=== PATIENT | female | born 1970 | race Caucasian/White ===

== ENCOUNTER 2023-12-16 11:34 | Outpatient (CLI) | payer MEDICAID, SELFPAY ==
[2023-12-16 19:11] LABS: Creatinine,Urine Random 17 mg/dL (Not Estab.)
[2023-12-16 19:15] LABS: Microalbumin < 6.000 mg/L (0-16.7)
[2023-12-16 19:28] LABS: Basophils # 0.1 K/mm3 (0-0.2); Eosinophils # 0.2 K/mm3 (0.0-0.4); Hemoglobin 16.3 g/dL (12.2-16.2); Lymphocytes # 2.2 K/mm3 (0.7-4.5); Lymphocytes % 27.5 % (10-50); Mean Corpuscular HGB Conc 33.9 g/dL (31.8-35.4); Mean Corpuscular Hemoglobin 29.3 pg (27.0-31.2); Mean Corpuscular Volume 86.4 fl (81-99); Monocytes # 0.4 K/mm3 (0.1-1.0); Monocytes % 4.6 % (1.7-9.3); Neutrophils # 5.2 K/mm3 (1.8-7.8); Platelet Count 303 K/mm3 (142-424); Red Blood Count 5.56 M/mm3 (4.20-5.40)
[2023-12-16 19:34] LABS: Alanine Aminotransferase 46 U/L (12-78); Albumin Level 4.2 g/dl (3.5-5.0); Albumin/Globulin Ratio 1.4 (1.1-1.8); Alkaline Phosphatase 127 U/L (38-126); Aspartate Amino Transferase 39 U/L (14-36); Bilirubin,Total 0.5 mg/dl (0.2-1.3); Blood Urea Nitrogen 18 mg/dl (7-17); Calcium 10.2 mg/dl (8.4-10.2); Carbon Dioxide 24 mmol/L (22.0-30.0); Chloride 101 mmol/L (98-107); Chol/HDL Ratio 5.5 (1-3.5); Cholesterol 311 mg/dl (140-200); Estimated Glomerular Filt Rate 166 ml/min (>60); GFR (African American) 201 ML/MIN (>60); Glucose 256 mg/dl (74-100); HDL Cholesterol 57 mg/dl (40-60); Sodium 135 mmol/L (136-145); Total Protein,Serum 7.2 g/dl (6.3-8.2); Triglycerides 242 mg/dl (30-150); VLDL Cholesterol 48 mg/dL (0-40)
[2023-12-16 19:45] LABS: Direct LDL Cholesterol 209.89 mg/dL (100-129)
[2023-12-16 20:03] LABS: Thyroid Stimulating Hormone 0.96 uIU/mL (0.465-4.68)
[2023-12-16 20:49] LABS: Hemoglobin A1C 12.4 % (4.0-6.0)
== END 2023-12-16 23:59 | disposition home or self-care (01) ==
LOC: LAB.DROPOF 12-17 11:34
PROVIDERS: PCP Family Medicine; Visit Provider Family Medicine
DX: I10 Essential (primary) hypertension (principal); E11.8 Type 2 diabetes mellitus with unspecified complications; Z00.00 Encounter for general adult medical examination without abnormal findings; R53.83 Other fatigue; Z79.85 Long-term (current) use of injectable non-insulin antidiabetic drugs; Z79.84 Long term (current) use of oral hypoglycemic drugs
CPT/HCPCS: 80050; 80053; 80061; 82043; 82570; 83036; 84443; 85025